=== PATIENT | female | born 1995 | race Caucasian/White ===

== ENCOUNTER 2018-08-25 18:03 | Emergency (ER) | payer MEDICAID ==
[~2018-08-25] VITALS: Ht 165.1 cm; Wt 53.8 kg
[2018-08-25 18:30] VITALS: Ht 165.1 cm; Wt 53.8 kg
[2018-08-25] MEDS ORDERED: METOCLOPRAMIDE 10 MG INJ IV STA (19:58)
[2018-08-25] MEDS ORDERED: SOD CHLORIDE 0.9% 1,000 ML IV STA (19:58)
--- NOTE | 2018-08-25 22:01 | ERD ---
ER Documentation Chief Complaint Chief Complaint vomiting x 4 days, states 9 weeks . denies vb HPI Patient is a 23-year-old female, G1, P0, approximately 9 weeks , presents to the ER for concerns of vomiting for last 4 days. Patient states she has difficulty with keeping food p.o. fluids down. Patient approximates vomiting 3-4 times per day. Patient denies any vaginal bleeding. Patient does admit to occasional pelvic cramps. She denies any pain at this time. Patient denies fevers or chills. Patient denies any urinary symptoms. Patient denies any diarrhea. Patient states her [employer]INE[employer] is at [facility] [place]. Patient states her last menstrual period was on 06-21-18. ROS All systems reviewed and are negative except as per history of present illness. Medications Home Meds Active Scripts Cephalexin* (Keflex*) 500 Mg Capsule, 500 MG PO TID for 7 Days, CAP Prov:JULIO PADILLA-C 08/25/18 Acetaminophen* (Tylophen*) 500 Mg Capsule, 1 CAP PO Q6H PRN for PAIN AND OR ELEVATED TEMP, #20 CAP Prov:JULIO PADILLA-C 08/25/18 Metoclopramide* (Reglan*) 10 Mg Tablet, 10 MG PO Q6 PRN for NAUSEA AND/OR VOMITING, #10 TAB Prov:JULIO PADILLA-C 08/25/18 Allergies Allergies: Coded Allergies: No Known Drug Allergies (Verified Allergy, Unknown, 08/25/18) PMhx/Soc Medical and Surgical Hx: pt denies Medical Hx, pt denies Surgical Hx Hx Alcohol Use: No Hx Substance Use: No Hx Tobacco Use: No Smoking Status: Never smoker FmHx Family History: No diabetes Physical Exam Vitals Vital Signs Date Temp Pulse Resp B/P (MAP) Pulse Ox O2 O2 Flow FiO2 Time Delivery Rate 08/25/18 99.1 73 20 108/58 100 18:30 (75) Physical Exam GENERAL: Well-developed, well-nourished female. Appears in no acute distress. Speaking in full sentences. HEAD: Normocephalic, atraumatic. EYES: Pupils are equally reactive bilaterally. EOMs grossly intact. No conjunctival erythema. ENT: Moist mucous membranes. No uvula deviation. No kissing tonsils. NECK: Supple. No meningismus. Normal range of motion of the neck. LUNG: Clear to auscultation bilaterally. No rhonchi, wheezing, rales or coarse breath sounds. HEART: Regular rate and rhythm. No murmurs, rubs or gallops. ABDOMEN: No scars, ecchymosis or rashes noted. Soft, nontender, and nondistended . Positive bowel sounds in all four quadrants. No rebound tenderness, no guarding. (-) McBurney's point tenderness. No CVA tenderness. EXTREMITIES: Equal pulses bilaterally. No peripheral clubbing, cyanosis or edema. No unilateral leg swelling. NEUROLOGIC: Alert and oriented. Moving all four extremities without any difficulty. Normal speech. Steady gait. SKIN: Normal color. Warm and dry. No rashes or lesions. Result Diagram: 08/25/18200308/25/182003 Results 24 hrs Laboratory Tests Test 08/25/18 20:04 08/25/18 20:11 White Blood Count 12.3 10^3/ul Red Blood Count 4.26 10^6/ul Hemoglobin 12.5 g/dl Hematocrit 36.3 % Mean Corpuscular Volume 85.2 fl Mean Corpuscular Hemoglobin 29.3 pg Mean Corpuscular Hemoglobin Concent 34.4 g/dl Red Cell Distribution Width 12.3 % Platelet Count 236 10^3/UL Mean Platelet Volume 11.6 fl Immature Granulocytes % 0.300 % Neutrophils % 81.8 % Lymphocytes % 14.1 % Monocytes % 3.2 % Eosinophils % 0.2 % Basophils % 0.4 % Nucleated Red Blood Cells % 0.0 /100WBC Immature Granulocytes # 0.040 10^3/ul Neutrophils # 10.0 10^3/ul Lymphocytes # 1.7 10^3/ul Monocytes # 0.4 10^3/ul Eosinophils # 0.0 10^3/ul Basophils # 0.1 10^3/ul Nucleated Red Blood Cells # 0.0 10^3/ul Urine Color YELLOW Urine Clarity SLIGHTLY CLOUDY Urine pH 6.0 Urine Specific [place] 1.020 Urine Ketones 2+ mg/dL Urine Nitrite NEGATIVE mg/dL Urine Bilirubin NEGATIVE mg/dL Urine Urobilinogen NEGATIVE mg/dL Urine Leukocyte Esterase 2+ Gunjan/ul Urine Microscopic RBC 6 /HPF Urine Microscopic WBC 12 /HPF Urine Squamous Epithelial Cells MODERATE /HPF Urine Bacteria FEW /HPF Urine Mucus MODERATE /HPF Urine Hemoglobin NEGATIVE mg/dL Urine Glucose NEGATIVE mg/dL Urine Total Protein NEGATIVE mg/dl Sodium Level 137 mmol/L Potassium Level 3.7 mmol/L Chloride Level 100 mmol/L Carbon Dioxide Level 23 mmol/L Anion Gap 14 Blood Urea Nitrogen 13 mg/dl Creatinine 0.55 mg/dl Est Glomerular Filtrat Rate mL/min > 60 mL/min Glucose Level 83 mg/dl Calcium Level 9.4 mg/dl Total Bilirubin 0.6 mg/dl Direct Bilirubin 0.00 mg/dl Indirect Bilirubin 0.6 mg/dl Aspartate Amino Transf (AST/SGOT) 22 IU/L Alanine Aminotransferase (ALT/SGPT) 22 IU/L Alkaline Phosphatase 73 IU/L Total Protein 8.4 g/dl Albumin 4.7 g/dl Globulin 3.70 g/dl Albumin/Globulin Ratio 1.27 Lipase 62 U/L Beta HCG, Quantitative 018477.0 mIU/ml POC Beta HCG, Qualitative POSITIVE Current Medications Medications Dose Sig/Subha Start Time Status Last (Trade) Ordered Route PRN Stop Time Admin Dose Reason Admin Sodium 1,000 ml @ Q1H STAT 08/25/18 DC 08/25/18 Chloride 1,000 mls/hr IV 19:58 20:14 08/25/18 20:57 10 mg ONCE STAT 08/25/18 DC 08/25/18 Metoclopramid IV 19:58 20:13 e HCl 08/25/18 20:00 (Reglan) Procedures/MDM ED COURSE: The patient was stable throughout ED course. I kept the patient and/or family informed of laboratory and diagnostic imaging results throughout the ED course. DIAGNOSTIC IMAGING: Read by radiologist. DIAGNOSTIC IMAGING REPORT Patient: FIONA VERMA : 1995 Age: 23 Sex: F MR #: [id number] DOS: 08/25/181957 Ordering MD: JULIO PADILLA PA-C Location: [facility] Room/Bed: PROCEDURE: US Obstetrical 1st Trimester CLINICAL INDICATION: Pelvic pain TECHNIQUE: Multiple real-time images were acquired of the patient's maternal abdomen utilizing a curved array transducer. COMPARISON: None FINDINGS: There is a well implanted gestational sac within the fundus of the uterus with a mean sac diameter of 3.07 cm which corresponds to a gestational sac age of 8 weeks 1 day plus or minus 4 days. A yolk sac is identified. There is a single pole with a crown-rump length of 1.35 cm which corresponds to a gestational age of 7 weeks 4 days plus or minus 4 days. There is positive cardiac activity being at 146 beats per minute. There are 2 foci of subchorionic hemorrhage seen about the gestational sac with one inferior to the gestational sac measuring 2.2 x 1.9 x 0.4 cm and one superior to the gestational sac measuring 0.8 by 0.3 cm. The right ovary measures 6.9 x 5.0 x 4.7 cm and contains a simple cyst measuring 5.2 x 4.7 x 3.7 cm and a smaller simple cyst measuring 1.6 cm in maximum diameter. The left ovary measures 4.9 x 4.4 x 3.2 cm and contains a 5.4 x 4.1 x 1.9 cm s imple cyst. Vascular flow is demonstrated in each ovary on Doppler. No adnexal mass or free fluid is identified IMPRESSION: 1. Single live intrauterine fetus which by ultrasound corresponds to a gestational age of 7-week 6 days plus or minus 4 days. The estimated date of delivery based on today's sonogram is 04/07/2019. 2. Two foci of subchorionic hemorrhage are seen about the gestational sac with one inferior to the sac measuring 2.2 cm in maximal diameter and the other superior to the sac measuring 0.8 cm in maximum diameter. 3. Simple cysts are seen within each ovary with the largest on the right measuring 5.2 cm and the largest on the left measuring 5.4 cm. Vascular flow is demonstrated in each ovary on Doppler. 4. No adnexal mass or free fluid is evident. Physician Irving Date Time Electronically viewed and signed by Physician Irving on 08/25/2018 22:11 RH/ CC: JULIO PADILLA PA-C [id number] PROCEDURES: None. MEDICATIONS GIVEN: IV fluids, Reglan Patient tolerated medication well with no adverse reactions. Patient reported improvement in pain. MEDICAL DECISION MAKING: This is a 23-year-old female presents the ER for concerns of vomiting for the last 4 days. Patient is G1, P0. Patient states she is approximately 9 weeks .. Vital signs were reviewed. Patient is afebrile. IV line was established. Blood work was obtained. CBC showed WBC count of 12.3, likely elevated secondary to vomiting and state. CBC showed no evidence of systemic infection or severe anemia. CMP showed no evidence of electrolyte abnormalities, severe acidosis, alkalosis, renal failure, or liver disease. Lipase showed no evidence of acute pancreatitis. UA did show 2+ leukocyte esterase. Patient be discharged home with prescription for Keflex for concerns of UTI. Pelvic ultrasound showed live intrauterine gestation of 7 weeks and 6 days 4 days. 2 foci subchorionic hemorrhages were seen. Patient was also noted to have 2 cysts on her bilateral ovaries. Normal Doppler flow was noted bilaterally. No adnexal mass or free fluid is noted. Patient was given a copy of pelvic ultrasound advised to follow-up with her [employer]HE[employer] ENGINEER for further management of findings. Patient was given IV fluids and Reglan. Upon reexamination, patient reported improvement in symptoms. At this time, the patient's presentation is most consistent with vomiting secondary to and UTI. Low suspicion for threatened , spontaneous , missed , acute coronary syndrome, AAA, mesenteric ischemia, lower lobe pneumonia, DKA, bowel perforation, cholecystitis, choledocholithiasis, ascending cholangitis, hepatic abscess, pancreatitis, PUD, gastritis, GERD, splenic rupture, diverticulitis, pyelonephritis, nephrolithiasis, appendicitis, constipation, , ectopic , PID, ovarian torsion or tubo-ovarian abscess. Patient was nontoxic, [id number] prior to discharge. PRESCRIPTIONS: Tylenol, Keflex DISCHARGE: At this time, patient is stable for discharge and outpatient management. I have instructed the patient to follow-up with his/her primary care physician and/or CLAMSHE[employer] ENGINEER in 1-2 days. I have instructed the patient to promptly return to the ER at any time for any new or worsening symptoms including increased pain, nausea, vomiting, diarrhea, fever, weakness or LOC. The patient and/or family expressed understanding of and agreement with this plan. All questions were answered. Home care instructions were provided. Disclaimer: Inadvertent spelling and grammatical errors are likely due to EHR/dictation software use and do not reflect on the overall quality of patient care. Also, please note that the electronic time recorded on this note does not necessarily reflect the actual time of the patient encounter. Departure Diagnosis: Primary Impression: Weeks of gestation: unspecified Qualified Codes: Z34.90 - Encounter for supervision of normal , unspecified, unspecified trimester Additional Impression: Nausea and vomiting Vomiting type: unspecified Vomiting Intractability: unspecified Qualified Codes: R11.2 - Nausea with vomiting, unspecified Condition: Fair Patient Instructions: Nausea and Vomiting-Adult Referrals: [facility] YOU HAVE RECEIVED A MEDICAL SCREENING EXAM AND THE RESULTS INDICATE THAT YOU DO NOT HAVE A CONDITION THAT REQUIRES URGENT TREATMENT IN THE EMERGENCY DEPARTMENT. FURTHER EVALUATION AND TREATMENT OF YOUR CONDITION CAN WAIT UNTIL YOU ARE SEEN IN YOUR DOCTORS OFFICE WITHIN THE NEXT 1-2 DAYS. IT IS YOUR RESPONSIBILITY TO MAKE AN APPOINTMENT FOR FOLOW-UP CARE. IF YOU HAVE A PRIMARY DOCTOR --you should call your primary doctor and schedule an appointment IF YOU DO NOT HAVE A PRIMARY DOCTOR YOU CAN CALL OUR PHYSICIAN REFERRAL HOTLINE AT IF YOU CAN NOT AFFORD TO SEE A PHYSICIAN YOU CAN CHOSE FROM THE FOLLOWING [facility] [address] [facility]. [facility] [address] [facility] [facility] [address] [facility] [facility] [address] [facility]. [facility] [address] [facility]. [facility]. [address] [facility] [facility] YOU HAVE RECEIVED A MEDICAL SCREENING EXAM AND THE RESULTS INDICATE THAT YOU DO NOT HAVE A CONDITION THAT REQUIRES URGENT TREATMENT IN THE EMERGENCY DEPARTMENT. FURTHER EVALUATION AND TREATMENT OF YOUR CONDITION CAN WAIT UNTIL YOU ARE SEEN IN YOUR DOCTORS OFFICE WITHIN THE NEXT 1-2 DAYS. IT IS YOUR RESPONSIBILITY TO MAKE AN APPOINTMENT FOR FOLOW-UP CARE. IF YOU HAVE A PRIMARY DOCTOR --you should call your primary doctor and schedule and appointment IF YOU DO NOT HAVE A PRIMARY DOCTOR YOU CAN CALL OUR PHYSICIAN REFERRAL HOTLINE AT . IF YOU CAN NOT AFFORD TO SEE A PHYSICIAN YOU CAN CHOSE FROM THE FOLLOWING [facility] INSTITUTIONS: [facility] [address] [place] [address] [facility] [address] [place] [address] [facility] + [facility] [address] [place] [address] Additional Instructions: Llame OBGYN MAANA y larissa devika ROSALVA PARA DENTRO DE 1-2 DUBOSE.Dgale a la secretaria que nosotros le instruimos hacer esta rosalva.Avise o llame si paz condicin se empeora antes de la rosalva. Regresa aqui si peor o no mejor. JULIO PADILLA PA-C Aug 25, 2018 22:01
[2018-08-25] MEDS ORDERED: ACET500C5 PO (22:21)
[2018-08-25] MEDS ORDERED: METO10TA92 PO (22:21)
[2018-08-25] MEDS ORDERED: CEPH-443 PO (22:23)
[2018-08-25 22:44] VITALS: BP 91/53; PULSE 80; RESP 18
== END 2018-08-25 22:46 | disposition home or self-care (01) ==
LOC: FTE 18:03
DX: O21.9 Vomiting of pregnancy, unspecified (principal); R10.2 Pelvic and perineal pain; Z3A.09 9 weeks gestation of pregnancy
CPT/HCPCS: 36415; 76801; 80053; 81001; 81025; 83690; 84702; 85025; 96374; J2765; J7030; Z7502